=== PATIENT | female | born 1960 | race Caucasian/White ===

== ENCOUNTER 2017-01-16 20:10 | Observation (INO) | payer MEDICAID ==
[~2017-01-16] VITALS: Ht 167.6 cm; Wt 81.8 kg
[2017-01-16] MEDS ORDERED: NORVASC10 MG PO (23:01)
[2017-01-16] MEDS ORDERED: GABAPENTIN100 MG PO (23:02)
[2017-01-16] MEDS ORDERED: HYDROCODONE-APA1 TAB PO (23:06)
[2017-01-17 11:09] VITALS: Ht 167.6 cm; Wt 81.8 kg
[2017-01-17 16:00] VITALS: BP 126/61
[2017-01-17] MEDS ORDERED: BAYER CHEWABLE81 MG PO (17:21)
[2017-01-17] MEDS ORDERED: CRESTOR20 MG PO (17:21)
[2017-01-17] MEDS ORDERED: PROZAC40 MG PO (17:21)
[2017-01-17] MEDS ORDERED: PRINIVIL20 MG PO (17:21)
== END 2017-01-17 17:58 | disposition home or self-care (01) ==
LOC: D.ER 20:10 → OBSVTIME 22:07 → D.M2 22:07
PROVIDERS: ADMIT Family Medicine
DX: I25.10 Atherosclerotic heart disease of native coronary artery without angina pectoris (principal); F17.213 Nicotine dependence, cigarettes, with withdrawal; J44.9 Chronic obstructive pulmonary disease, unspecified; K21.9 Gastro-esophageal reflux disease without esophagitis; E78.5 Hyperlipidemia, unspecified; M51.36 Other intervertebral disc degeneration, lumbar region; E11.65 Type 2 diabetes mellitus with hyperglycemia; E11.40 Type 2 diabetes mellitus with diabetic neuropathy, unspecified; I10 Essential (primary) hypertension; F32.9 Major depressive disorder, single episode, unspecified; G89.29 Other chronic pain

== ENCOUNTER → 2017-01-29 16:49 | Outpatient (CLI) | payer MEDICAID ==
[2017-01-17 11:09] VITALS: BMI 29.1
[~2017-01-29 16:49] MED LIST: BAYER CHEWABLE81 MG PO; CRESTOR20 MG PO; GABAPENTIN100 MG PO; HYDROCODONE-APA1 TAB PO; NORVASC10 MG PO; PRINIVIL20 MG PO; PROZAC40 MG PO
[2017-01-29 19:18] LABS: CHOL - HDL RATIO 2.4 ratio (2.3-4.1)
== END | disposition home or self-care (01) ==
LOC: D.LABREF 16:49
PROVIDERS: Internal Medicine Cardiovascular Disease
DX: E78.5 Hyperlipidemia, unspecified (principal); I10 Essential (primary) hypertension

== ENCOUNTER 2018-03-21 17:13 | Emergency (ER) | payer MEDICAID ==
[~2018-03-21] VITALS: Ht 167.6 cm; Wt 90.9 kg
[2018-03-21 17:15] VITALS: Ht 167.6 cm; Wt 90.9 kg
[2018-03-21 17:41] LABS: BASOPHILS 0.2 % (0-2); EOSINOPHILS 2.9 % (0-7); HEMATOCRIT 37.1 % (36.0-48.0); HEMOGLOBIN 12.4 g/dL (12-16); IMMATURE GRANULOCYTES 0.1 % (0-5); LYMPHOCYTES 42.1 % (15-50); MCH 33.2 pg (26.0-34.0); MCHC 33.4 g/dL (31.0-37.0); MCV 99.5 fL (80.0-100.0); MONOCYTES 6.7 % (2-11); PLATELET COUNT 221 10x3/uL (130-400); RBC 3.73 10x6/uL (4.00-5.40); RDW 12.7 % (11.5-14.5); WBC 9.2 10x3/uL (4.8-10.8)
[2018-03-21 17:54] LABS: PROTIME 12.7 SECONDS (11.6-15.0)
[2018-03-21 18:02] LABS: ALBUMIN 3.4 g/dL (3.4-5.0); ALKALINE PHOSPHATASE 147 U/L (46-116); ALT (SGPT) 66 U/L (10-68); BILIRUBIN - TOTAL 0.27 mg/dL (0.2-1.3); CALC OSMOLALITY 282 mosm/kg (275-300); CALCIUM 9.1 mg/dL (8.5-10.1); CARBON DIOXIDE 28.4 mmol/L (21.0-32.0); CHLORIDE - SERUM 106 mmol/L (98-107); CREATININE - SERUM 0.8 mg/dL (0.6-1.3); GLUCOSE 128 mg/dL (74-106); POTASSIUM - SERUM 3.6 mmol/L (3.5-5.1); PROTEIN - SERUM 6.9 g/dL (6.4-8.2); SODIUM 141 mmol/L (136-145); UREA NITROGEN 12 mg/dL (7-18); eGFR NON AFRICAN AMERICAN 78 mL/min (90-120)
[2018-03-21 18:13] LABS: CREATINE KINASE 61 UL (21-215); MAGNESIUM - SERUM 1.8 mg/dL (1.8-2.4); TROPONIN-I < 0.017 ng/mL (0.000-0.060)
[2018-03-21 19:31] LABS: APPEARANCE CLEAR (CLEAR); BILIRUBIN NEGATIVE (NEGATIVE); COLOR YELLOW (YELLOW); GLUCOSE NEGATIVE (NEGATIVE); KETONE NEGATIVE (NEGATIVE); NITRITE NEGATIVE (NEGATIVE); PROTEIN NEGATIVE (NEGATIVE); SPECIFIC GRAVITY 1.015 (1.005-1.020); UROBILINOGEN NORMAL (NORMAL); WHITE CELLS - URINE OCC /hpf (0-5)
[2018-03-21 19:32] LABS: BACTERIA FEW /hpf (NONE SEEN); EPITHELIAL CELLS OCC /hpf (0-5); RED CELLS - URINE RARE /hpf (0-5)
[2018-03-21] MEDS ORDERED: MACROBID100 MG PO (19:37)
[2018-03-21] MEDS ORDERED: ZOFRAN4 MG PO (19:43)
[2018-03-21] MEDS ORDERED: CYCLOBENZAPRINE10 MG PO (19:43)
[2018-03-21] MEDS ORDERED: ZESTRIL20 MG PO (19:43)
[2018-03-21 20:31] VITALS: BP 134/65
== END 2018-03-21 20:32 | disposition home or self-care (01) ==
LOC: D.ER 17:13
PROVIDERS: Emergency Medicine
DX: R07.9 Chest pain, unspecified (principal); Z91.14 Patient's other noncompliance with medication regimen; N39.0 Urinary tract infection, site not specified; I10 Essential (primary) hypertension; J44.9 Chronic obstructive pulmonary disease, unspecified; K21.9 Gastro-esophageal reflux disease without esophagitis; F17.200 Nicotine dependence, unspecified, uncomplicated

== ENCOUNTER → 2019-05-26 15:05 | Outpatient (CLI) | payer OTHER ==
[2018-03-21 17:15] VITALS: BMI 32.3
[~2019-05-26 15:05] MED LIST changes: +CYCLOBENZAPRINE10 MG PO; +MACROBID100 MG PO; +ZESTRIL20 MG PO; +ZOFRAN4 MG PO
== END | disposition home or self-care (01) ==
LOC: D.RT 15:05
PROVIDERS: ATTEND Pediatrics
DX: Z02.71 Encounter for disability determination (principal)